=== PATIENT | female | born 1985 | race Caucasian/White ===

== ENCOUNTER 2018-01-14 21:32 | Inpatient (IN) | payer MEDICAID, SELFPAY ==
[2018-01-14 21:35] VITALS: BMI 19.8
[2018-01-14 21:45] VITALS: BP 122/71; PULSE 87; RESP 20; TEMP 38.8; O2SAT 98
[2018-01-14] MEDS: HYDROmorphone 1 MG/ML Syringe 2 MG IV (22:39)
[2018-01-14] MEDS: 0.9% NaCl Peripheral Flush Adult/Peds IV (22:40)
[2018-01-14] MEDS: Dextrose 5%-Lactated Ringers 1,000 ML 125 ML IV (22:55)
[2018-01-14] MEDS: HYDROcodone Bitartrate/Apap 5/325 Tablet PO (23:24)
[2018-01-14] MEDS: Ibuprofen 600 MG Tablet PO (23:59)
[2018-01-15] MEDS: HYDROmorphone 1 MG/ML Syringe 2 MG IV ×7 (01:52→21:05)
[2018-01-15 02:06] VITALS: BP 105/61; PULSE 73; RESP 17; TEMP 36.6; O2SAT 98
[2018-01-15] MEDS: Dextrose 5%-Lactated Ringers 1,000 ML 125 ML IV ×3 (05:14→21:05)
[2018-01-15 06:12] LABS: Absolute Lymphocyte Count 2.01 X10^3/ul (0.83-4.51); Absolute Neutrophil Count 9.7 X10^3/uL (2.0-7.7); Basophil# 0.02 X10^3/uL; Basophil% 0.2 % (0-1); Eosinophil# 0.09 X10^3/uL; Eosinophils% 0.7 % (0-5); Hematocrit 29.9 % (37-47); Hemoglobin 9.5 g/dl (12.0-15.0); Lymphocyte # 2.01 X10^3/ul (4.0); Mean Corp Hgb Conc 31.8 g/gl (32-36); Mean Corpuscular Hgb 30.4 pg (27.0-32.0); Mean Corpuscular Volume 95.5 fL (81-99); Mean Platelet Vol. 11.3 fl (6.2-12.0); Monocyte% 5.6 % (0-10); Neutrophil # 9.73 X10^3/uL (2.7-7.7); Neutrophil % 77.3 % (47-70); Platelet Count 152 K/mm3 (150-450); RBC Distribution Width SD 43.3 fl (35.1-43.9); Red Blood Count 3.13 M/mm3 (4.2-5.4); White Blood Count 12.6 K/mm3 (4.4-11.0)
[2018-01-15 06:36] LABS: POSITIVE COUNT NO; POSITIVE DIFFERENTIAL NO; POSITIVE MORPHOLOGY NO
--- NOTE | 2018-01-15 07:02 | PCM.HP.STD ---
Problem List (1) Pelvic inflammatory disease (PID) Status: Acute History of Present Illness Date of Admission: 01/14/18 Chief Complaint: Abdominal Pain The patient is a 32 year old F [with onset of severe lower abdominal pain and fevers.] Past Medical History Medical History: Medical History (Last Updated 01/15/18 @ 07:05 by Luis Winslow MD) Elective Z33.2 Allergies No Known Allergies Allergy (Verified 01/14/18 21:36) Home Medications: Ambulatory Orders Medication Instructions Recorded NK [NK] 01/14/18 Surgical History: Surgical History (Last Updated 01/15/18 @ 07:05 by Luis Winslow MD) History of elective Z98.890 Surgical History: noncontributory 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 Denies: Constipation, Diarrhea Genitourinary: Denies: Dysuria, Frequency Gynecological: Reports: Vaginal discharge - watery foul smelling. Denies: Excessively long or heavy periods, Sexual concerns, Vaginal bleeding Psychiatric: Denies: Anxiety, Depression Hematologic/ Lymphatic: Denies: Anemia VTE Information - Inpt Only VTE Present on Admission: No VTE Mechan Device Prophylaxis: None VTE Pharm Prophylaxis ordered?: No Reason prophylaxis not ordered:: Treatment Not Indicated Patient Problems: Active and Suspected Problems (Last Updated 01/15/18 @ 07:05 by Luis Winslow MD) Pelvic inflammatory disease (PID) (Acute) Subjective: Complains of lower abdominal pain right lower back pain. Pain in abdomen with urination and bowel movements. Fevers. Objective: Tm 89 F in ER currently afeb VSS - Physical Exam General: Alert, Oriented x3, Cooperative, No apparent distress Oral: Moist Mucosa Lungs: Clear to auscultation, Normal air movement Cardiovascular: Regular rate, Regular Rhythm Abdomen: Bowel Sounds Present, Soft, Non-Distended, Passing Flatus, Tender - especially lower abdomen Extremities: No edema Skin: No rashes Neurological: Neuro grossly intact Psych/Mental Status: Normal Affect Vital Signs Temp Pulse Resp BP Pulse Ox 98 F 73 17 105/61 98 01/15/18 02:06 01/15/18 02:06 01/15/18 02:06 01/15/18 02:06 01/15/18 02:06 Oxygen Delivery Method Room Air Weight: 119 lb 4.321 oz Body Mass Index (BMI) 19.8 Intake and Output for Last 24 Hours 01/13/18 01/14/18 01/15/18 23:59 23:59 23:59 Intake Total 1663 / 1663 Output Total 400 / 400 Balance 1263 / 1263 Laboratory Tests Past 24 Hrs 01/15/18 05:44 WBC 12.6 H RBC 3.13 L Hgb 9.5 L Hct 29.9 L MCV 95.5 MCH 30.4 MCHC 31.8 L RDW 13.0 RDW Differential 43.3 Plt Count 152 MPV 11.3 Immature Gran % (Auto) 0.200 Neut % (Auto) 77.3 H Lymph % (Auto) 16.0 L [place] % (Auto) 5.6 Eos % (Auto) 0.7 Baso % (Auto) 0.2 Absolute Neuts (auto) 9.7 H Absolute Lymphs (auto) 2.01 Total Counted Not Reportable Assessment/Plan All Active Problems (Last Updated 01/15/18 @ 07:05 by Luis Winslow MD) Pelvic inflammatory disease (PID) (Acute) Will follow fever curve and treat with IV/PO antibiotics until afebrile for 24 hours then wach on PO antibiotics. Will repeat CBC daily. Pain treated with dilaudid but would prefer she transition to PO medications. US and CT findings c/w PID without abscess. Will add metronidazole to cover possibility of trichomonas infection.
--- NOTE | 2018-01-15 07:20 | PN.OBGYN_ITS ---
Patient Problems: Active and Suspected Problems (Last Updated 01/15/18 @ 07:05 by Luis Winslow MD) Pelvic inflammatory disease (PID) (Acute) Subjective: Painful. Tolerating PO. Voiding. No vomiting. Objective: Tm 103 in ER yesterday evening. Tm here 101.9 currently afeb VSS - Physical Exam General: Alert, Oriented x3, Cooperative, No apparent distress Lungs: Clear to auscultation, Normal air movement Cardiovascular: Regular rate, Regular Rhythm Abdomen: Soft, Non-Distended, Tender - especially lower quadrants Extremities: No edema, No Calf Tenderness Skin: No rashes Neurological: Neuro grossly intact Psych/Mental Status: Normal Affect Vital Signs Temp Pulse Resp BP Pulse Ox 98 F 73 17 105/61 98 01/15/18 02:06 01/15/18 02:06 01/15/18 02:06 01/15/18 02:06 01/15/18 02:06 Oxygen Delivery Method Room Air Weight: 119 lb 4.321 oz Body Mass Index (BMI) 19.8 Intake and Output for Last 24 Hours 01/13/18 01/14/18 01/15/18 23:59 23:59 23:59 Intake Total 1663 / 1663 Output Total 400 / 400 Balance 1263 / 1263 Laboratory Tests Past 24 Hrs 01/15/18 05:44 WBC 12.6 H RBC 3.13 L Hgb 9.5 L Hct 29.9 L MCV 95.5 MCH 30.4 MCHC 31.8 L RDW 13.0 RDW Differential 43.3 Plt Count 152 MPV 11.3 Immature Gran % (Auto) 0.200 Neut % (Auto) 77.3 H Lymph % (Auto) 16.0 L [place] % (Auto) 5.6 Eos % (Auto) 0.7 Baso % (Auto) 0.2 Absolute Neuts (auto) 9.7 H Absolute Lymphs (auto) 2.01 Total Counted Not Reportable Medical Necessity - Tobacco Use Smoking Status: Current every day smoker Assessment/Plan All Active Problems (Last Updated 01/15/18 @ 07:05 by Luis Winslow MD) Pelvic inflammatory disease (PID) (Acute) Plan to follow fever curve. Add metronidazole. Pain management. UA sent. Follow WBC.
[2018-01-15] MEDS: 0.9% NaCl Peripheral Flush Adult/Peds IV ×4 (08:27→17:45)
[2018-01-15] MEDS: metroNIDAZOLE 500 MG Tablet PO ×2 (08:28→21:06)
[2018-01-15 08:40] VITALS: BP 92/52; PULSE 56; RESP 17; TEMP 36.5; O2SAT 100
--- NOTE | 2018-01-15 10:15 | CASEMGMT ---
RN KIERAN Face to Face with patient for initial transition planning/care coordination assessment. RN CM introduced self and role at [facility]. Patient lying in bed, alert and oriented. Patient willing to participate in assessment and is able to answer all questions appropriately. Care providers, pharmacy, and demographics verified. See link attached. Patient wishes to discharge home, denies need for home health at this time. Patient does not have a PCP and list of area doctors provided. Patient states she has no further needs or concerns at this time. CM to follow for discharge planning needs that may arise. Disposition Plan: Patient to discharge home with family support and follow-up plans in place.
[2018-01-15 12:13] LABS: Mucous, Urine 0 SEEN /hpf (<or=2+); Red Blood Cells-Urine 0 SEEN /hpf (0-5)
[2018-01-15 12:17] LABS: Color, Urine Yellow (Yellow); Glucose, Dipstick Normal (Normal); Ketone-Dipstick Negative (Negative); Leukocyte Esterase-Dipstick 100 /ul (Negative); Nitrite-Dipstick Negative (Negative); Occult Blood-Urine Negative /ul (Negative); Protein-Dipstick 30 mg/dl (Negative); Urine Bilirubin Dipstick Negative (Negative); Urine Clarity Clear (Clear); Urine Urobilinogen 4 mg/dl (Normal)
[2018-01-15 12:32] LABS: Squamous Epithelial Cells - UA 10-25 SEEN /hpf (5-10); White Blood Cells 10-25 SEEN /hpf (0-5)
[2018-01-15 12:33] LABS: Bacteria RARE /hpf (None Seen)
--- NOTE | 2018-01-15 12:36 | DCINST_ITS ---
- Discharge Diagnoses Current Active Problems: Current Active and Chronic Problems (Last Updated 01/15/18 @ 07:05 by Luis Winslow MD) Pelvic inflammatory disease (PID) (Acute) You will use the following diet at home:: No restrictions Your food should be the consistency of: Regular Discharge Activity: Return to Normal Activity, May Drive, May not drive while taking narcotic pain medications., May Shower Return to work on:: 01/26/18 May shower in (days): 0 May resume sexual activity in: 4 weeks Call your doctor if your incision/area has: Sudden Increased Bleeding, Increased Pain/ Swelling Call your doctor if you observe: Fever of 101 or Higher, Inability to urinate, Inability to have a bowel movement, Using more than one pad per hour, Shortness of breath, Chest pain, Calf discomfort, Uncontrolled pain Allergies/Adverse Reactions: Allergies No Known Allergies Allergy (Verified 01/14/18 21:36) Medications to take at Discharge Doxycycline 100 mg PO Q12 #28 cap 01/15/18 Metronidazole [Flagyl] 500 mg PO BID #28 tab 01/15/18 The following prescriptions were given: Doxycycline 100 mg PO Q12 #28 cap Metronidazole [Flagyl] 500 mg PO BID #28 tab Primary Care Physician: Care Physician,No Primary [Primary Care Provider] - Test Results: Test results from this visit will be discussed in further detail at your follow- up appointment, if applicable. Please Follow Up With: Luis Winslow MD - call [phone] for appt When: two weeks Proposed Discharge Date: 01/17/18
--- NOTE | 2018-01-15 13:56 | NURSING ---
1000: pt asked if she could leave the floor to smoke, notified pt she is not allowed to leave the floor but could call the physician and request a nicotine patch, pt refused.
[2018-01-15 14:15] VITALS: BP 106/66; PULSE 68; RESP 18; TEMP 36.6; O2SAT 100
[2018-01-15] MEDS: Ketorolac 30 MG/ML Syringe IV (15:52)
--- NOTE | 2018-01-15 15:52 | CASEMGMT ---
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
[2018-01-15] MEDS: HYDROcodone Bitartrate/Apap 5/325 Tablet PO (19:53)
[2018-01-15 21:00] VITALS: BP 109/67; PULSE 60; RESP 16; TEMP 36.4; O2SAT 100
[2018-01-15] MEDS: Doxycycline 100 MG CAPSULE PO (21:07)
[2018-01-16] MEDS: Ketorolac 30 MG/ML Syringe IV (00:05)
[2018-01-16] MEDS: HYDROmorphone 1 MG/ML Syringe 2 MG IV ×3 (01:01→08:22)
[2018-01-16 03:00] VITALS: BP 110/64; PULSE 57; RESP 16; TEMP 36.7; O2SAT 99
[2018-01-16 06:07] LABS: Absolute Lymphocyte Count 1.27 X10^3/ul (0.83-4.51); Absolute Neutrophil Count 3.1 X10^3/uL (2.0-7.7); Basophil# 0.01 X10^3/uL; Basophil% 0.2 % (0-1); Eosinophil# 0.07 X10^3/uL; Eosinophils% 1.5 % (0-5); Hematocrit 26.4 % (37-47); Hemoglobin 8.4 g/dl (12.0-15.0); Lymphocyte # 1.27 X10^3/ul (4.0); Lymphocyte % 26.4 % (19-41); Mean Corp Hgb Conc 31.8 g/gl (32-36); Mean Corpuscular Hgb 30.2 pg (27.0-32.0); Mean Platelet Vol. 11.6 fl (6.2-12.0); Monocyte# 0.36 X10^3/uL; Monocyte% 7.5 % (0-10); Neutrophil # 3.08 X10^3/uL (2.7-7.7); Platelet Count 138 K/mm3 (150-450); RBC Distribution Width CV 12.7 % (11.6-14.6); RBC Distribution Width SD 42.5 fl (35.1-43.9); Red Blood Count 2.78 M/mm3 (4.2-5.4); White Blood Count 4.8 K/mm3 (4.4-11.0)
[2018-01-16 06:08] LABS: POSITIVE COUNT NO; POSITIVE DIFFERENTIAL NO; POSITIVE MORPHOLOGY NO
[2018-01-16 08:08] VITALS: BP 121/70; PULSE 61; PULSE 63; RESP 17; TEMP 36.6; O2SAT 100
[2018-01-16] MEDS: 0.9% NaCl Peripheral Flush Adult/Peds IV (08:22)
--- NOTE | 2018-01-16 08:35 | PCM.PN.OB ---
Subjective: Patient relates she needs to leave urgently for a family emergency. Her sister is coming to pick her up now from [place]. She notes pain improved from yesterday. Denies fever, chills, nausea or vomiting. Pain persists however in lower abdomen. Objective: AVSS - Physical Exam General: Alert, Oriented x3, Cooperative, No apparent distress HEENT: Atraumatic, Normocephalic Lungs: Clear to auscultation, Normal air movement Cardiovascular: Regular rate, Regular Rhythm, Normal S1, Normal S2 Abdomen: Bowel Sounds Present, Soft, Non-Distended, No Hepato-splenomegaly, - - Tenderness in right and left lower quadrants without rebound or guarding Extremities: No edema, No Calf Tenderness Neurological: Neuro grossly intact Psych/Mental Status: Normal Affect, Appropriate, Alert and oriented to time, place, person, mood and affect Vital Signs Temp Pulse Resp BP Pulse Ox 97.9 F 63 17 121/70 H 100 01/16/18 08:08 01/16/18 08:08 01/16/18 08:08 01/16/18 08:08 01/16/18 08:08 Oxygen Delivery Method Room Air Weight: 54.1 kg Body Mass Index (BMI) 19.8 Intake and Output for Last 24 Hours 01/15/18 01/16/18 01/17/18 23:59 23:59 23:59 Intake Total 3509 / 3509 1924 / 1924 Output Total 950 / 950 500 / 500 Balance 2559 / 2559 1424 / 1424 Microbiology Past 72 Hours 01/15/18 12:00 Urine Culture - Preliminary Urine, Clean Catch Culture exhibits no growth. Laboratory Tests Past 24 Hrs 01/16/18 05:52 WBC 4.8 RBC 2.78 L Hgb 8.4 L Hct 26.4 L MCV 95.0 MCH 30.2 MCHC 31.8 L RDW 12.7 RDW Differential 42.5 Plt Count 138 L MPV 11.6 Immature Gran % (Auto) 0.400 Neut % (Auto) 64.0 Lymph % (Auto) 26.4 [place] % (Auto) 7.5 Eos % (Auto) 1.5 Baso % (Auto) 0.2 Absolute Neuts (auto) 3.1 Absolute Lymphs (auto) 1.27 Total Counted Not Reportable Medical Necessity - Tobacco Use Smoking Status: Current every day smoker Assessment/Plan All Active Problems (Last Updated 01/15/18 @ 07:05 by Luis Winslow MD) Pelvic inflammatory disease (PID) (Acute) 32yo with PID -Responding appropriately to antibiotic therapy and afebrile > 36 hours. -Will d/c home given improvement -Stressed importance of close follow up and completion of outpatient antibiotic regimen to ensure resolution of infection and prevent sequelae
--- NOTE | 2018-01-16 09:37 | NURSING ---
Pt called this morning at approximately 8:30, I need to leave, there is a family emergency and I need to leave now. This nurse was talking to pt about staying until Doctor came to see her when Dr. Mao walked in. Dr. Izabel Pearson aware that pt is very eager to leave. Pt seems very anxious, restless. Leida would not tell this nurse what the family emergency entailed. Not long after Dr. Izabel Pearson left room pt called out. She said I could leave, Which this nurse then informed her that we needed to wait for orders. Pt wanted IV taken out so she could get dressed. This nurse looked at IV and noticed that skin was taunt and edematous to IV site, pt stated it was painful. This nurse took out only b/c of that and instructed to elevated and warm compress applied. Approximately 15 min after that, pt came out to desk fully dressed and ready to leave. Dr. Mao had just put Discharge order in but no instructions and that is when Leida informed this nurse that I needed to call Izabel Pearson to tell her what pharmacy to send her prescriptions too. This nurse paged Izabel Pearson and spoke with her. Dr. Izabel Pearson wanted her to wait until this afternoon to leave but pt was not willing to wait. Dr. Izabel Pearson aware of this. Instructions from 01/[address] Winslow were given to pt because she kept asking to leave. My ride is downstairs, I have a family emergency. I need to go now. I feel like crap but if I have too I will be back.
--- NOTE | 2018-01-17 01:50 | PCM.DC.SUM ---
Discharge Date and Diagnosis Date of Admission: 01/14/18 Date of Discharge: 01/16/18 Hospital Course and Treatment Operations: None Procedures: None Summary of Care Provided: The patient is a 32 year old F presenting with fever and abdominal pain admitted with acute PID. She was initially evaluated at [facility] and requested transfer to [facility] for admission. She had an US and CT consistent with PID without abscess. She was started on Cefotetan, Doxycycline and Flagyl. She was afebrile for approximately 36 hours with improvement of her exam and discharged to home on hospital day #3. Discharge Diet: No Restrictions Discharge Activity: Return to Normal Activity, May Drive, May not drive while taking narcotic pain medications., May Shower Return to work on:: 01/26/18 May shower in (days): 0 May resume sexual activity in: 4 weeks Call your doctor if your incision/area has: Sudden Increased Bleeding, Increased Pain/ Swelling Call your doctor if you observe: Fever of 101 or Higher, Inability to urinate, Inability to have a bowel movement, Using more than one pad per hour, Shortness of breath, Chest pain, Calf discomfort, Uncontrolled pain Home Medications: Medications to take at Discharge Doxycycline 100 mg PO Q12 #28 cap 01/15/18 Metronidazole [Flagyl] 500 mg PO BID #28 tab 01/15/18 Following Prescrptions Were Given to Patient: Doxycycline 100 mg PO Q12 #28 cap Metronidazole [Flagyl] 500 mg PO BID #28 tab Primary Care Physician: Care Physician,No Primary [Primary Care Provider] - Please Follow Up With: Luis Winslow MD - call [phone] for appt When: two weeks Medical Necessity - Tobacco Use Smoking Status: Current every day smoker Meaningful Use Info Meaningful Use Diagnoses (Choose all that apply): None applicable
--- NOTE | 2018-01-17 01:54 | DS.PCM_ITS ---
Discharge Date and Diagnosis Date of Admission: 01/14/18 Date of Discharge: 01/16/18 Hospital Course and Treatment Operations: None Procedures: None Summary of Care Provided: The patient is a 32 year old F presenting with fever and abdominal pain admitted with acute PID. She was initially evaluated at [facility] and requested transfer to [facility] for admission. She had an US and CT consistent with PID without abscess. She was started on Cefotetan, Doxycycline and Flagyl. She was afebrile for approximately 36 hours with improvement of her exam and discharged to home on hospital day #3. Discharge Diet: No Restrictions Discharge Activity: Return to Normal Activity, May Drive, May not drive while taking narcotic pain medications., May Shower Return to work on:: 01/26/18 May shower in (days): 0 May resume sexual activity in: 4 weeks Call your doctor if your incision/area has: Sudden Increased Bleeding, Increased Pain/ Swelling Call your doctor if you observe: Fever of 101 or Higher, Inability to urinate, Inability to have a bowel movement, Using more than one pad per hour, Shortness of breath, Chest pain, Calf discomfort, Uncontrolled pain Home Medications: Medications to take at Discharge Doxycycline 100 mg PO Q12 #28 cap 01/15/18 Metronidazole [Flagyl] 500 mg PO BID #28 tab 01/15/18 Following Prescrptions Were Given to Patient: Doxycycline 100 mg PO Q12 #28 cap Metronidazole [Flagyl] 500 mg PO BID #28 tab Primary Care Physician: Care Physician,No Primary [Primary Care Provider] - Please Follow Up With: Luis Winslow MD - call [phone] for appt When: two weeks Medical Necessity - Tobacco Use Smoking Status: Current every day smoker Meaningful Use Info Meaningful Use Diagnoses (Choose all that apply): None applicable
== END 2018-01-16 09:37 | disposition home or self-care (01) | DRG 368 ==
PROVIDERS: Admitting Provider Obstetrics & Gynecology; Visit Provider Obstetrics & Gynecology
DX: N73.9 Female pelvic inflammatory disease, unspecified (principal); F17.200 Nicotine dependence, unspecified, uncomplicated
CPT/HCPCS: 36415; 81001; 85025; 87086; 87088; 97802; J7040; A4216; J0696